=== PATIENT | male | born 1950 | race Caucasian/White ===

== ENCOUNTER 2017-01-13 06:34 | Day surgery (SDC) | payer MEDICARE, BC ==
[2017-01-13] MEDS ORDERED: LIDOCAINE HCL 1% MPF SOL ONE (06:52)
[2017-01-13] MEDS ORDERED: BSS W/ 0.25MG P.F. EPI 1 BOTTLE ONE (06:52)
[2017-01-13] MEDS ORDERED: POVIDONE IODINE 5% SOL ONE (06:52)
[2017-01-13] MEDS ORDERED: ACETAMINOPHEN 325 MG ONE (06:53)
[2017-01-13 07:00] VITALS: O2SAT 94
[2017-01-13] MEDS: CYCLOPENTOLATE 1% SOL ONE ×2 (07:07→07:20)
[2017-01-13] MEDS: PHENYLEPHRINE HCL 10% OPHTHAL SOL ONE ×2 (07:07→07:20)
[2017-01-13] MEDS: PROPARACAINE HCL 0.5% OPHTHALMIC SOL ONE ×3 (07:07→08:16)
[2017-01-13] MEDS ORDERED: FENTANYL CITRATE 50 MCG/ML SOL ONE (07:47)
[2017-01-13] MEDS ORDERED: MIDAZOLAM 2 MG/2 ML SOL ONE (07:48)
[2017-01-13] MEDS ORDERED: ACETAZOLAMIDE 500 MG CER ONE (08:39)
[2017-01-13 09:17] VITALS: BP 139/85; PULSE 70; RESP 20; TEMP 97.1
== END 2017-01-13 09:35 | disposition home or self-care (01) | DRG 125 ==
LOC: SURG 06:34
PROVIDERS: ATTEND Ophthalmology
DX: H25.9 Unspecified age-related cataract (principal)
CPT/HCPCS: J2250; J3010; J2001